=== PATIENT | female | born 1960 | race American Indian/Alaskan Native ===

== ENCOUNTER 2021-02-05 13:29 | Outpatient (CLI) | payer MEDICARE ==
--- NOTE | 2021-02-05 14:51 | XRay Report ---
Left hand 3 views INDICATION: Pain FINDINGS: Mild degenerative change throughout the MCP joints and IP joints. No erosive or destructive change. Carpal bone alignment appears normal. No acute fracture. Signer Name: Thai Logan MD Signed: 02/05/2021 2:47 PM Workstation Name: [id number]
== END 2021-02-05 13:30 | disposition home or self-care (01) ==
LOC: SPVIMAG 13:29
PROVIDERS: ATTEND Internal Medicine
DX: M19.042 Primary osteoarthritis, left hand (principal)